=== PATIENT | female | born 1990 | race Caucasian/White ===

== ENCOUNTER 2021-11-22 19:21 | Emergency (ER) | payer MEDICAID ==
[~2021-11-22] VITALS: Ht 154.9 cm; Wt 96.0 kg
[2021-11-22 21:34] LABS: BASOPHILS % 0.3 % (0.0-2.0); EOSINOPHILS % 0.2 % (0.0-5.0); HEMATOCRIT. 44.3 % (36.0-48.0); HEMOGLOBIN. 15.1 g/dL (12.0-16.0); LYMPHOCYTES % 15.6 % (20.0-50.0); MEAN CORPUSCULAR HEMOGLOBIN 28.9 pg (28.0-32.0); MEAN CORPUSCULAR VOLUME 85.1 fL (81.0-99.0); MEAN PLATELET VOLUME 8.5 fl (7.4-10.4); MONOCYTES % 9.4 % (2.0-8.0); NEUTROPHILS % 74.5 % (40.0-76.0); PLATELET 253 x1000/uL (130-400); RED BLOOD CELL COUNT 5.21 mill/uL (4.2-5.4); RED CELL DISTRIBUTION WIDTH 13.2 % (11.6-14.6)
[2021-11-22 21:39] LABS: CHLORIDE 100 mEq/L (98-107)
[2021-11-22 21:42] LABS: ETHANOL BLOOD < 10 mg/dL
[2021-11-22 21:44] LABS: INR 1.1; PROTHROMBIN TIME 11.3 sec (9.6-11.0)
[2021-11-22] MEDS: PANTOPRAZOLE SODIUM 40 MG/VIAL IV ONE (21:49)
[2021-11-22] MEDS: SODIUM CHLORIDE 0.9% 1,000 ML IV ONE (21:49)
[2021-11-22] MEDS: ONDANSETRON HCL 4MG/2ML INJ IV STA (21:49)
[2021-11-22 21:50] LABS: HCG SCREEN NEGATIVE
[2021-11-22 21:57] LABS: CLARITY URINE CLOUDY (CLEAR); COLOR URINE YELLOW (YELLOW); KETONES URINE 1+ (NEGATIVE); LEUKOCYTE ESTERASE URINE NEGATIVE (NEGATIVE); NITRITE URINE POSITIVE (NEGATIVE); OCCULT BLOOD URINE NEGATIVE (NEGATIVE); PH URINE 5.5 (4.5-8.0); PROTEIN URINE NEGATIVE (NEGATIVE); SPECIFIC GRAVITY URINE 1.019 (1.005-1.030); UROBILINOGEN URINE 0.2 E.U./dL (0.2-1.0)
[2021-11-22 22:18] LABS: *AMPHETAMINES SCREEN URINE NEGATIVE (NEGATIVE); *BARBITURATES SCREEN URINE NEGATIVE (NEGATIVE)
[2021-11-22 22:19] LABS: *BENZODIAZEPINES SCREEN URINE NEGATIVE (NEGATIVE); *COCAINE SCREEN URINE NEGATIVE (NEGATIVE); METHADONE URINE SCREEN NEGATIVE (NEGATIVE); OPIATES URINE SCREEN NEGATIVE (NEGATIVE); PHENCYCLIDINE URINE SCREEN NEGATIVE (NEGATIVE)
[2021-11-22 22:20] LABS: CANNABINOID URINE SCREEN NEGATIVE (NEGATIVE)
[2021-11-22] MEDS ORDERED: IBUP-2029 MT (22:37)
[2021-11-22] MEDS ORDERED: CEPH500C2 MT (22:43)
[2021-11-22] MEDS: IBUPROFEN 600MG TABLET PO ONE (23:02)
[2021-11-22 23:32] VITALS: BP 128/96
== END 2021-11-22 23:34 | disposition home or self-care (01) ==
LOC: ER 19:21
DX: U07.1 COVID-19 (principal); B34.9 Viral infection, unspecified; N39.0 Urinary tract infection, site not specified
CPT/HCPCS: 36415; 80053; 80305; 80320; 81003; 83690; 84703; 85025; 85610; 87426; 87804; 96361; 96374; 96375; 99284; C9113; J2405; J7030; G0480